=== PATIENT | male | born 1965 | race Hispanic/Latino ===

== ENCOUNTER → 2018-02-10 | Outpatient (CLI) | payer BC ==
[2018-02-10 15:24] LABS: CREATININE 1.2 mg/dL (0.5-1.5)
== END | disposition home or self-care (01) ==
LOC: LAB 14:45
PROVIDERS: ATTEND Internal Medicine Cardiovascular Disease
DX: I10 Essential (primary) hypertension (principal); I73.9 Peripheral vascular disease, unspecified
CPT/HCPCS: 36415; 82565; 84520

== ENCOUNTER → 2018-02-12 | Outpatient (CLI) | payer BC ==
[~2018-02-12] MED LIST: IOPAMIDOL-370 75 ML VIAL IV ONE; ISOVUE-370 50ML VIAL IV ONE
== END | disposition home or self-care (01) ==
LOC: OIH 07:49
PROVIDERS: ATTEND Internal Medicine Cardiovascular Disease
DX: I73.9 Peripheral vascular disease, unspecified (principal); I70.90 Unspecified atherosclerosis
CPT/HCPCS: 75635; Q9967 ×2

== ENCOUNTER → 2022-08-26 | Outpatient (CLI) | payer BC ==
[~2022-08-26] MED LIST changes: +GADOTERATE MEGLUMINE 10 MMOL/20 ML VIAL IV ONE; +IOHEXOL 350 MG/ML 100ML INFUS..BTL IV ONE; -IOPAMIDOL-370 75 ML VIAL IV ONE; -ISOVUE-370 50ML VIAL IV ONE
== END | disposition home or self-care (01) ==
LOC: RAH 07:46
PROVIDERS: ATTEND Internal Medicine Cardiovascular Disease
DX: I73.9 Peripheral vascular disease, unspecified (principal); M31.4 Aortic arch syndrome [Takayasu]
CPT/HCPCS: 75635; 71555; Q9967; A9575

== ENCOUNTER → 2024-05-17 | Outpatient (CLI) | payer BC ==
[2024-05-17 16:38] LABS: ALBUMIN 3.7 g/dL (3.5-5.0); BILIRUBIN,TOTAL 0.6 mg/dL (0.2-1.0); POTASSIUM 4.4 mmol/L (3.5-5.1)
== END | disposition home or self-care (01) ==
LOC: LAB 13:57
PROVIDERS: ATTEND Internal Medicine Cardiovascular Disease
DX: I10 Essential (primary) hypertension (principal)
CPT/HCPCS: 36415; 80053

== ENCOUNTER → 2024-05-24 | Outpatient (CLI) | payer BC ==
[~2024-05-24] MED LIST changes: -GADOTERATE MEGLUMINE 10 MMOL/20 ML VIAL IV ONE; +IOHEXOL-350 50ML VIAL IV ONE
== END | disposition home or self-care (01) ==
LOC: EDSTATUS 09:00 → RAH 10:49
PROVIDERS: ATTEND Internal Medicine Cardiovascular Disease
DX: I73.9 Peripheral vascular disease, unspecified (principal); K44.9 Diaphragmatic hernia without obstruction or gangrene
CPT/HCPCS: 75635; Q9967 ×2

== ENCOUNTER 2024-09-04 21:48 | Emergency (ER) | payer BC ==
[~2024-09-04] VITALS: Ht 172.7 cm; Wt 93.0 kg
[2024-09-04] MEDS: ibuPROFEN 800 MG TAB PO ONE (22:16)
[2024-09-04] MEDS: HYDROcodone/APAP 5/325 1 TAB TABLET PO ONE (22:17)
[2024-09-04] MEDS: teTANUS/diphthERIA TOXOID [ADULT] 0.5 ML VIAL IM ONE (22:18)
[2024-09-04] MEDS: AMOX/CLAV 875/125MG TAB PO ONE (23:30)
[2024-09-04 23:40] VITALS: BP 152/84; PULSE 74; RESP 18; TEMP 98.1; O2SAT 96
[2024-09-04] MEDS ORDERED: AMOX1TAB16 PO (23:43)
== END 2024-09-05 00:24 | disposition home or self-care (01) ==
LOC: EDH 21:48
DX: S61.213A Laceration without foreign body of left middle finger without damage to nail, initial encounter (principal); S61.451A Open bite of right hand, initial encounter; S61.452A Open bite of left hand, initial encounter; I10 Essential (primary) hypertension; Z95.1 Presence of aortocoronary bypass graft; W54.0XXA Bitten by dog, initial encounter; Y93.89 Activity, other specified; Y92.89 Other specified places as the place of occurrence of the external cause; Y99.8 Other external cause status
CPT/HCPCS: 12002; 73110; 73130; 90471; 90714

== ENCOUNTER 2025-07-28 06:03 | Day surgery (SDC) | payer BC ==
[2025-07-26 11:59] VITALS: BP 149/80; PULSE 52; RESP 13; TEMP 97.9
[2025-07-26 12:03] LABS: IMMATURE GRANULOCYTE ABSOLUTE 0.04 K/uL (0-1); NUCLEATED RED BLOOD CELLS 0.0 % (0.0-0.19); PLATELET COUNT (AUTO) 286 K/uL (130-400); RED BLOOD CELL COUNT(AUTO) 5.13 MIL/uL (4.50-6.20); RED CELL DISTRIBUTION WIDTH 14.8 % (11.0-15.5); WHITE BLOOD COUNT (AUTO) 8.9 K/uL (4.8-10.8)
[2025-07-26 12:09] LABS: CREATININE 1.0 mg/dL (0.5-1.3); GLOMERULAR FILTR. RATE CALC 87.0 mL/min (>90); GLUCOSE,RANDOM 101.0 mg/dL (70-105); SODIUM SERUM 135.0 mmol/L (136-145); UREA NITROGEN, BLOOD 15.0 mg/dL (7-18)
[2025-07-26 12:11] LABS: APPEARANCE,URINE CLEAR (CLEAR); GLUCOSE, URINE (UA) NEGATIVE (NEGATIVE); LEUKOCYTE ESTERASE ,URINE 25 Leu/uL (NEGATIVE); NITRATE,URINE NEGATIVE (NEGATIVE); OCCULT BLOOD,URINE NEGATIVE (NEGATIVE)
[2025-07-26 12:13] LABS: INR 1.02 (0.85-1.15)
[2025-07-26 12:20] LABS: ADD UA MICROSCOPIC YES
[2025-07-26 12:24] LABS: SQUAMOUS EPITHELIAL CELL,UR RARE /HPF (0-2)
--- NOTE | 2025-07-26 12:28 | EKG ---
[facility] Test Date: 2025-07-26 Test Time: 11:47:31 Pat Name: YONNY MARTINEZ Department: [facility] Room: [facility] Gender: M Incident Coordinator: [id number] : 1965 Requested By: VANESSA BAR Order Number: [id number] Reading MD: Petra Nickerson Measurements Intervals [place] Rate: 49 P: -5 HI: 145 QRS: 5 QRSD: 142 T: 6 QT: 449 QTc: 407 Interpretive Statements Sinus bradycardia Right bundle branch block Probable left ventricular hypertrophy Lateral infarct, age indeterminate No previous ECG available for comparison Electronically Signed On 07-29-2025 08:34:04 CDT by Petra Nickerson Please click the below link to view image of tracing.
--- NOTE | 2025-07-27 07:41 | HMCIMG ---
EXAM: CR Chest, 1 View. CLINICAL HISTORY: PRE OP COMPARISON: None provided. FINDINGS: Median sternotomy wires are noted. LUNGS: There is no mass, infiltrate, or acute pulmonary abnormality. PLEURAL SPACES: No pleural effusion or pneumothorax. MEDIASTINUM: Cardiac size and mediastinal contours within normal limits. BONES: No aggressive appearing osseous lesion seen. IMPRESSION: No acute cardiopulmonary pathology is evident. /[place]
--- NOTE | 2025-07-27 09:06 | NUR ---
RE: LABS REPORTED UA RESULTS TO MARJAN FRANCO NP (PATIENT ASYMPTOMATIC,PENDING CX RESULTS) NO NEW ORDERS RECEIVED.
[2025-07-28] VITALS (10 sets, daily range): BP systolic 116–172; BP diastolic 62–85; PULSE 49–57; RESP 16–20; TEMP 97.9–98.2
[~2025-07-28] VITALS: Ht 172.7 cm; Wt 92.1 kg
[~2025-07-28 06:03] MED LIST changes: +ASPI-1443 PO; +CARV12.511 PO; +CLOP75TA32 PO; +EZET10TA80 PO; +FOLI1 PO; -IOHEXOL 350 MG/ML 100ML INFUS..BTL IV ONE; -IOHEXOL-350 50ML VIAL IV ONE; +LISI10TA24 PO; +METH2.5T6 PO; +ROSU40TA88 PO
[2025-07-28] MEDS: 0.9%NACL 1000ML 1,000 ML IV ONE (06:48)
[2025-07-28] MEDS ORDERED: ATROPINE 1MG SYG IVP ONE (07:46)
[2025-07-28] MEDS ORDERED: HEParin-NS 1,000 UNIT/500 ML 500 ML IV ONE (09:00)
[2025-07-28] MEDS ORDERED: LIDOCAINE HCL 400MG/20ML VIAL ONE (09:00)
[2025-07-28] MEDS ORDERED: IOHEXOL 350 MG/ML 100ML INFUS..BTL IV ONE (09:00)
[2025-07-28] MEDS ORDERED: IOHEXOL-350 50ML VIAL IV ONE (09:00)
[2025-07-28] MEDS ORDERED: NITROGLYCERIN 50MG VIAL ONE (09:00)
[2025-07-28] MEDS ORDERED: MIDAZOLAM HCL 1 MG/ML 2ML VIAL ONE (09:00)
[2025-07-28] MEDS ORDERED: 0.9%NACL 1000ML 1,000 ML IV SCH (09:30)
--- NOTE | 2025-07-28 09:30 | PRN ---
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 PROCEDURE NOTE: After informed consent was obtained the patient was prepped and draped in the usual sterile fashion. A 6 [place] arterial sheath was inserted in the right femoral artery using a micropuncture technique with ultrasound guidance with a front wall, first pass puncture. This was performed after fluoroscopic identification of bony landmarks to facilitate a more accurate puncture of the right common femoral artery. The arterial sheath was aspirated and flushed. A 6 [place] pigtail catheter was then advanced over a J-tipped guidewire to the ascending aorta and was prolapsed into the left ventricle. The catheter was aspirated and flushed and pressure measurements were obtained. A left ventriculogram was then performed in a 30 [place] projection. A pullback procedure was then performed, and this catheter was removed over a J-tipped guidewire. A 6F JL-4 was then advanced to the ascending aorta over a J-tipped guidewire, was aspirated and flushed, and was used for selective left coronary angiograms in multiple obliquities. A JR-4 was advanced in a similar fashion to the ascending aorta over a J-tipped guidewire and was used for selective right co ronary angiograms in multiple obliquities with findings as outlined below. The six [place] JR4 was used for injection of the SVG-diagonal one, injection of the SVG-OM1, and injection of the SVG-PDA. A AHN catheter was used for injection of the AHN graft to the LAD. Findings were as outlined below. A right common femoral angiogram was performed to assess suitability for Perclos e suture closure and the Perclose device was deployed in standard fashion. Perclose suture closure was successful without bleeding or hematoma. The patient tolerated the procedure well and was returned to the holding area in stable condition. FINDINGS: LEFT HEART HEMODYNAMICS: The patient's LVEDP was 24 mm of mercury prior to LV-gram in 20 mm of mercury after the LV-gram. There was no aortic valve gradient on pullback procedure. LEFT VENTRICULOGRAM: A left ventriculogram in a 30 degree [place]O projection demonstrated moderate mid anterior hypokinesis with an LVEF of 55-60%. There was no angiographic MR. CORONARY ANGIOGRAM: LEFT MAIN: The left main coronary had a 30% distal stenosis without dampening or ventricularization of the pressure waveform. LEFT ANTERIOR DESCENDING: The LAD was totally occluded after the 1st septal chief information officer. There was a widely patent AHN graft to the distal LAD which filled the mid LAD retrograde. There was a widely patent SVG to the diagonal one with a 30% stenosis at the proximal anastomosis of the SVG. There was excellent surgical revascularization of the LAD and diagonal one. LEFT CIRCUMFLEX: The left circumflex had a 50% ostial stenosis, 30% mid stenosis, and 60% distal stenosis prior to an OM3 branch. The OM1 branch had a 40% stenosis and there was a widely patent SVG-OM1 with a 40% stenosis at the proximal anastomosis to the aorta. There was excellent surgical revascularization of the OM1 and nonobstructive disease antegrade through the circumflex system. RAMUS INTERMEDIATE BRANCH: There was no ramus intermediate branch. RIGHT CORONARY ARTERY: The right coronary artery was dominant with a small posterolateral branch. T here was a 60% proximal RCA stenosis and the PDA was totally occluded proximally. The acute marginal branch also had a 60% ostial stenosis. There was a widely patent SVG-PDA with a 50% tubular stenosis in the midbody which appeared nonobstructive. There was excellent surgical revascularization of the PDA. IMPRESSION: Moderate mid anterior hypokinesis with well-preserved LV systolic function and LVEF of 55-60%. No mitral regurgitation. No aortic stenosis. Severe [place] three-vessel coronary artery disease. 4/4 grafts patent with patent AHN-LAD, patent SVG-OM1, patent SVG-diagonal one, and patent SVG-PDA. Excellent surgical revascularization. RECOMMENDATION: Continued risk factor modification and medical therapy with aggressive lowering LDL cholesterol to less than 55 COMPLICATIONS OF PROCEDURE: None, the patient tolerated the procedure well and was returned to his room in stable condition. HEMOSTASIS: Perclose suture closure successful without bleeding or hematoma. ESTIMATED BLOOD LOSS: Less than 10 mL. CONTRAST TOTAL: 175 mL. CJ BAR MD Jul 28, 2025 09:30
== END 2025-07-28 12:45 | disposition home or self-care (01) ==
LOC: DAH 06:03
PROVIDERS: ATTEND Internal Medicine Cardiovascular Disease
DX: R94.39 Abnormal result of other cardiovascular function study (principal); E11.51 Type 2 diabetes mellitus with diabetic peripheral angiopathy without gangrene; I25.10 Atherosclerotic heart disease of native coronary artery without angina pectoris; I10 Essential (primary) hypertension; E78.5 Hyperlipidemia, unspecified; M31.4 Aortic arch syndrome [Takayasu]; R93.1 Abnormal findings on diagnostic imaging of heart and coronary circulation; I45.10 Unspecified right bundle-branch block; Z79.01 Long term (current) use of anticoagulants; Z95.1 Presence of aortocoronary bypass graft; Z79.82 Long term (current) use of aspirin; Z79.899 Other long term (current) drug therapy
CPT/HCPCS: 80048; 83880; 85025; 85610; 85730; 87086; 81001; 36415; 71045; 93005; 93459; 99156; 99157 ×4; C1894 ×2; C1760; J3010; J3490 ×2; J7030; J0461; J2250; J1644; Q9967 ×2; A4215; A4222; A4221; A4663; A4216; A4606; Q9965; A4223 ×3; 96360; 96361